=== PATIENT | male | born 1980 | race Caucasian/White ===

== ENCOUNTER 2017-05-07 12:57 | Emergency (ER) | payer OTHER ==
--- NOTE | 2017-05-07 13:34 | ER Document Report ---
ED Psych Disorder / Suicide - General Mode of Arrival: Ambulatory Information source: Patient TRAVEL OUTSIDE OF THE [place] IN LAST 30 DAYS: No - HPI Similar symptoms previously: No Recently seen / treated by doctor: No <GERA CASH - Last Filed: 05/07/17 20:24> <MAIDALEONARDOHOOD - Last Filed: 05/07/17 20:47> - General Chief Complaint: Depression Stated Complaint: WITHDRAWAL/DEPRESSION Time Seen by Provider: 05/07/17 13:25 Notes: Patient is a 37 year old male presenting to the emergency department for substance withdrawal and suicidal ideation. Patient contacted the [place] hotline and was brought in to the emergency department with Maribel from [place] [facility]. Patient states he is withdrawing from an Antidepressant known as Tianeptine which he states is a tricyclic antidepressant (TCA durg). Patient states he has been taking this medication to treat his depression for the past 8 months. Patient states he has had tried all sorts of medications for his depression in the past. Patient states he noticed that the medication was giving him a warm fuzzy feeling and so he started taking more of this medication until he realized that he was becomming addicted. This realization caused the patient to stop taking the medication 3 days ago. Patient complains of symptoms of hot and cold flashes, restlessness, nausea, and hypersensitivity. Patient also is having suicidal ideations and has a plan. Patient states he is going to slit his wrists and he told his mother that he "doesn't want to live anymore." Patient has a history of some self harm behavior. Patient states he also took some adderall last night. Patient drinks EtOH occasionally. Patient is allergic to trazodone. (GERA CASH) - Related Data Allergies/Adverse Reactions: trazodone Allergy (Verified 05/07/17 13:05) Past Medical History - General Information source: Patient - Social History Smoking Status: Never Smoker Cigarette use (# per day): No Chew tobacco use (# tins/day): No Smoking Education Provided: No Frequency of alcohol use: weekly Drug Abuse: Other Family History: None Patient has suicidal ideation: Yes Patient has homicidal ideation: No Psychiatric Medical History: Reports: Hx Depression Past Surgical History: Reports: Hx Appendectomy <GERA CASH - Last Filed: 05/07/17 20:24> Review of Systems - Review of Systems Constitutional: No symptoms reported, Other EENT: No symptoms reported Cardiovascular: No symptoms reported Respiratory: No symptoms reported Gastrointestinal: See HPI, Nausea Genitourinary: No symptoms reported Male Genitourinary: No symptoms reported Musculoskeletal: No symptoms reported Skin: No symptoms reported Hematologic/Lymphatic: No symptoms reported Neurological/Psychological: See HPI, Depression, Suicidal ideation, Other -: Yes All other systems reviewed and negative <GERA CASH - Last Filed: 05/07/17 20:24> Physical Exam - Vital signs Interpretation: Hypertensive <STEVE CASHINE - Last Filed: 05/07/17 20:24> <HOOD PERALTA - Last Filed: 05/07/17 20:47> - Vital signs Vitals: Temp Pulse Resp BP Pulse Ox 97.6 F 99 20 172/109 H 100 05/07/17 13:05 05/07/17 13:05 05/07/17 13:05 05/07/17 13:05 05/07/17 13:05 - Notes Notes: GENERAL: Alert, interacts well. No acute distress. HEAD: Normocephalic, atraumatic. EYES: Pupils equal, round, and reactive to light. Extraocular movements intact. ENT: Oral mucosa moist, tongue midline. NECK: Full range of motion. Supple. Trachea midline. LUNGS: Clear to auscultation bilaterally, no wheezes, rales, or rhonchi. No respiratory distress. HEART: Mild tachycardia. Regular rhythm. No murmurs, gallops, or rubs. ABDOMEN: Non-distended. EXTREMITIES: Moves all 4 extremities spontaneously. No edema. NEUROLOGICAL: Alert and oriented x3. Normal speech. PSYCH: Depressed, tearful with suicidal thoughts. SKIN: Warm, dry, normal turgor. No rashes or lesions noted. (GERA CASH) Course - Laboratory Result Diagrams: 05/07/17 13:48 05/07/17 13:48 - Consults Poison Control Time consulted: 13:39 <KEYONNAGERA PROCTOR - Last Filed: 05/07/17 20:24> - Laboratory Result Diagrams: 05/07/17 13:48 05/07/17 13:48 <HOOD PERALTA - Last Filed: 05/07/17 20:47> - Re-evaluation Re-evalutation: 05/07/17 16:28 CBC unremarkable, CMP unremarkable, urinalysis unremarkable, urine drug screen reveals amphetamines, salicylates, acetaminophen and alcohol are all undetectable. EKG is not ischemic nor does it show any concerning delays. I did discuss this patient with poison control as this medication that he has been taking is unknown to me, poison control states that most patients a very difficult time coming off of this medication on their own, some of them even require inpatient hospitalization however at this time the patient is 3 days out from his last dose of the medication and has very mild withdrawal symptoms. They agree with a trial of clonidine by mouth and if that helps with his symptoms putting on a clonidine patch. This medication can have effect similar to a tricyclic antidepressant but also similar to a narcotic. Sometimes benzodiazepines are required to help with the withdrawal symptoms as well. At present I do not feel these are indicated in this patient. Patient has been placed on involuntary commitment paperwork given his definitive plan for committing suicide, mental health has been consulted, we await their input. Patient is medically cleared at this point. 05/07/17 16:32 (HOOD PERALTA) - Vital Signs Vital signs: Temp Pulse Resp BP Pulse Ox 97.6 F 99 20 172/109 H 100 05/07/17 13:05 05/07/17 13:05 05/07/17 13:05 05/07/17 13:05 05/07/17 13:05 - Laboratory Laboratory results interpreted by me: 05/07/17 13:48 Calcium 10.6 H Total Protein 8.5 H Salicylates < 1.0 L Acetaminophen < 10 L - EKG Interpretation by Me Additional EKG results interpreted by me: 05/07/17 16:29 EKG shows sinus rhythm rate 94, normal axis, normal intervals, no ST segment elevations or depressions, no T-wave inversions per my interpretation. (HOOD PERALTA) - Consults Poison Control Reason for consultation: 05/07/17 13:39 Contacted Poison control to discuss patient. 05/07/17 13:58 Call back from poison control with recommendations for patient's treatment. ( GERA CASH) Discharge <GERA CASH - Last Filed: 05/07/17 20:24> <HOOD PERALTA - Last Filed: 05/07/17 20:47> - Discharge Clinical Impression: Antidepressant abuse, Antidepressant withdrawal, Suicidal ideation Condition: Stable Disposition: PSYCH HOSP/UNIT Scribe Attestation: 05/07/17 20:47 I personally performed the services described in the documentation, reviewed and edited the documentation which was dictated to the scribe in my presence, and it accurately records my words and actions. (HOOD PERALTA) Scribe Documentation - Scribe Written by Regina:: Regina Nesbitt 05/07/17 20:38 acting as scribe for :: Eve <GERA CASH - Last Filed: 05/07/17 20:24>
[2017-05-07 14:04] LABS: ABSOLUTE EOSINOPHILS # (AUTO) 0.2 10^3/uL (0.0-0.6); ABSOLUTE LYMPHOCYTES (AUTO) 2.1 10^3/uL (0.5-4.7); ABSOLUTE MONOCYTES (AUTO) 0.6 10^3/uL (0.1-1.4); ABSOLUTE NEUT (AUTO) 3.6 10^3/uL (1.7-8.2); BASOPHILS % (AUTO) 0.5 % (0-2); EOSINOPHILS % (AUTO) 2.6 % (0-6); HEMATOCRIT 45.9 % (37.9-51.0); HGB HCT DIFFERENCE 2.1; LYMPHOCYTES % (AUTO) 32.3 % (13-45); MEAN CORPUSCULAR HEMOGLOBIN 32.6 pg (27.0-33.4); MEAN CORPUSCULAR HGB CONC 34.9 g/dL (32.0-36.0); MEAN CORPUSCULAR VOLUME 93 fl (80-97); MONOCYTES % (AUTO) 9.6 % (3-13); RED BLOOD COUNT 4.92 10^6/uL (4.35-5.55); RED CELL DISTRIBUTION WIDTH 13.9 % (11.5-14.0); WHITE BLOOD COUNT 6.5 10^3/uL (4.0-10.5)
[2017-05-07] MEDS ORDERED: CLONIDINE HCL 0.1 MG TABLET PO ONE (14:05)
[2017-05-07 14:06] LABS: APPEARANCE,URINE CLEAR; BILIRUBIN,URINE NEGATIVE (NEGATIVE); GLUCOSE, URINE NEGATIVE (NEGATIVE); KETONES,URINE NEGATIVE (NEGATIVE); LEUKOCYTE ESTERASE,URINE NEGATIVE (NEGATIVE); NITRITE,URINE NEGATIVE (NEGATIVE); PROTEIN,URINE NEGATIVE (NEGATIVE); URINE SPECIFIC GRAVITY 1.002; UROBILINOGEN,URINE NEGATIVE mg/dL (<2.0)
[2017-05-07 14:22] LABS: ALANINE AMINOTRANSFERASE 56 U/L (21-72); ALKALINE PHOSPHATASE 82 U/L (38-126); ANION GAP 14 (5-19); ASPARTATE AMINO TRANSFERASE 31 U/L (17-59); BILIRUBIN,DIRECT 0.4 mg/dL (0.0-0.4); BILIRUBIN,TOTAL 0.5 mg/dL (0.2-1.3); BLOOD UREA NITROGEN 11 mg/dL (7-20); CALCIUM 10.6 mg/dL (8.4-10.2); CARBON DIOXIDE 28 mmol/L (22-30); CHLORIDE 101 mmol/L (98-107); CREATININE RESULT 0.94 mg/dL (0.52-1.25); GLUCOSE 99 mg/dL (75-110); POTASSIUM 4.6 mmol/L (3.6-5.0); SODIUM 143.4 mmol/L (137-145); TOTAL PROTEIN 8.5 g/dL (6.3-8.2)
[2017-05-07 14:25] LABS: ALCOHOL < 10 mg/dL (NONE DETECTED)
[2017-05-07 14:33] LABS: URINE BARBITURATES SCREEN NEGATIVE; URINE METHADONE SCREEN NEGATIVE; URINE OPIATES LOW NEGATIVE; URINE PHENCYCLIDINE SCREEN NEGATIVE
[2017-05-07] MEDS ORDERED: ACETAMINOPHEN 325 MG TABLET PO ONE (18:24)
--- NOTE | 2017-05-08 00:05 | EKG REPORT ---
SEVERITY:- NORMAL ECG - SINUS RHYTHM : Confirmed by: William Caban 08-May-2017 00:04:21
[2017-05-08] MEDS ORDERED: IBUPROFEN 800 MG TABLET PO ONE (01:32)
[2017-05-08] MEDS: OXYMETAZOLINE HCL 0.05% NASAL SPRAY 15 ML BOTTLE NASL PRN ×2 (02:00→11:08)
[2017-05-08] MEDS ORDERED: CLONIDINE HCL 0.1 MG TABLET PO ONE (02:52)
--- NOTE | 2017-05-08 09:44 | ER Document Report ---
Doctor's Note Notes: 05/08/17 09:43 37-year-old male with past medical history of depression. Patient presented yesterday supposedly withdrawing from an Antidepressant known as Tianeptine which he states is a tricyclic antidepressant (TCA durg). Patient states he has been taking this medication to treat his depression for the past 8 months. Patient states he has had tried all sorts of medications for his depression in the past. Patient currently denies any auditory or visual hallucinations. Labs as recorded. EKG showed no obvious delays. Patient is currently pain-free. Psychiatry consultation is pending.
[2017-05-08] MEDS ORDERED: LORAZEPAM 1 MG TABLET PO ONE (14:47)
[2017-05-08 17:23] VITALS: BP 148/72
== END 2017-05-08 17:32 ==
LOC: ER 12:57
DX: F19.239 Other psychoactive substance dependence with withdrawal, unspecified (principal); R11.0 Nausea; R00.0 Tachycardia, unspecified; F32.9 Major depressive disorder, single episode, unspecified; R45.851 Suicidal ideations; Z88.8 Allergy status to other drugs, medicaments and biological substances
CPT/HCPCS: 93005; 99285; 36415; 80307 ×4; 85025; 80053; 81001; 93010; J3490